=== PATIENT | male | born 2000 | race African-American/Black ===

== ENCOUNTER 2021-07-25 16:10 | Observation (INO) | payer OTHER, SELFPAY ==
--- NOTE | ~2021-07-25 | XR_ITS ---
EXAMINATION: XR chest 2V 07/25/2021 16:48 INDICATION: Chest pain PROCEDURE: 2 view chest COMPARISON: No prior studies for comparison. FINDINGS: The lungs are clear. The cardiomediastinal silhouette is within normal limits. There are no pleural effusions. Small left apical pneumothorax. IMPRESSION: 1: Small left apical pneumothorax. Dr. Cassius Padron discussed with Dr. 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 . Reviewed, dictated and finalized at location B. MBLER TRUCK TRAILER
--- NOTE | ~2021-07-25 | XR_ITS ---
EXAMINATION: XR chest 2V EXAM DATE: 07/26/2021 08:03 INDICATION: Left sided chest pain yesterday, pneumothorax. TECHNIQUE: Frontal and lateral projections of the chest obtained and reviewed. Comparison is made to prior examination from 07/25/2021. FINDINGS: There is small left-sided pneumothorax, about 8 mm of distance between the pleural reflecti ons at the lung apex, measuring about 4 mm on prior study. No acute airspace disease or pleural effus ion. Cardiomediastinal silhouette is normal. There are no osseous abnormalities identified. IMPRESSION: Small left pneumothorax, interval increase in size. Reviewed, dictated and finalized at location A. 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
--- NOTE | ~2021-07-25 | XR_ITS ---
EXAMINATION: XR chest 1V portable DATE: 07/27/2021 08:16 INDICATION: Spontaneous left pneumothorax. TECHNIQUE: A single frontal view of the chest was obtained. COMPARISON: Chest 2 views 07/26/2021 FINDINGS: There is a small left pneumothorax. No pneumonia or pleural effusion. The heart size is nor mal. IMPRESSION: 1. Stable small left pneumothorax. Reviewed, dictated and finalized at location A. KNITTER
[2021-07-25 16:15] VITALS: BP 115/33; PULSE 60; RESP 18; TEMP 36.3; O2SAT 100
--- NOTE | 2021-07-25 16:15 | ECG_ITS ---
Measurements Intervals [place] Rate: 56 P: 70 OK: 163 QRS: 55 QRSD: 113 T: 61 QT: 393 QTc: 381 Interpretive Statements SINUS BRADYCARDIA INCOMPLETE RIGHT BUNDLE BRANCH BLOCK BASELINE WANDER- II, III BORDERLINE ECG Electronically Signed On 07-25-2021 20:22:57 URBAN GARDENING SPECIALIST by Cristopher Tolbert D.O.
[2021-07-25 16:56] LABS: Basophils Percent Auto 0.9 % (0.2-1.2); Eosinophils Percent Auto 0.4 % (0-4.4); Hematocrit 42.4 % (42.0-52.0); Hemoglobin 14.5 g/dL (14.0-18.0); Immature Granulocyte Absolute 0.01 K/mm3 (0.00-0.031); Immature Granulocyte Percent A 0.2 % (0-0.5); Immature Platelet Fraction Pct 19.3 % (0.9-11.2); Lymphocytes Absolute Auto 1.75 K/mm3 (0.9-3.2); Lymphocytes Percent Auto 38.5 % (18.3-44.2); Mean Corpuscular HGB Conc 34.2 g/dl (32-36); Mean Corpuscular Hemoglobin 32.7 pg (26-34); Mean Corpuscular Volume 95.5 fl (80-100); Mean Platelet Volume 12.9 fl (7.4-10.4); Monocytes Absolute Auto 0.7 K/mm3 (0.1-0.6); Monocytes Percent Auto 15.6 % (2.6-8.5); Neutrophils Percent Auto 44.4 % (45.5-73.1); Platelet Count Result 126 k/mm3 (150-375); Red Blood Count 4.44 M/mm3 (4.6-6.20); Red Cell Distribution Width 12.3 % (11.5-14.5); White Blood Count 4.5 K/mm3 (4.5-10.0)
[2021-07-25 17:05] LABS: Alanine Aminotransferase 20 U/L (4-50); Alkaline Phosphatase 89 U/L (38-126); Anion Gap 9 mmol/L (8-16); Aspartate Amino Transferase 26 U/L (17-59); Bilirubin,Total 0.5 mg/dL (0.2-1.3); Blood Urea Nitrogen 15 mg/dL (9-20); Calcium 9.4 mg/dL (8.4-10.2); Carbon Dioxide 26 mmol/L (22-30); Chloride 106 mmol/L (98-107); Estimated CRCL calculation 99 ml/min; Estimated Glomerular Filt Rate > 60; Glucose 93 mg/dL (65-110); Lipase 50 U/L (23-300); Potassium 3.7 mmol/L (3.4-5.0); Sodium 141 mmol/L (137-145)
[2021-07-25 17:06] LABS: INR 1.1; Partial Thromboplastin Time 30.3 SECONDS (22.3-36.8); Prothrombin Time 14.2 Seconds (11.1-14.7)
[2021-07-25 17:16] LABS: Troponin I < 0.012 ng/mL (0.000-0.034)
[2021-07-25 17:30] VITALS: BP 125/97; PULSE 56; PULSE 65; RESP 14; O2SAT 100; O2SAT 96
--- NOTE | 2021-07-25 17:34 | ED.CHESTPAIN ---
HPI - Chest Pain General Chief Complaint: Chest Pain Stated Complaint: ruq pain to left chest Time Seen by Provider: 07/25/21 17:23 Source: patient Mode of arrival: ambulatory Limitations: no limitations History of Present Illness HPI narrative: 21-year-old otherwise healthy male here with complaints of left upper chest pain for the last half hour. Patient states that he was about to go to work started having pain had mild shortness of breath initially but however it subsided. He also mentions that he had pain in the right side of his chest while he was at work. He denies any trauma . No history of cough. No previous history of spontaneous pneumothorax MD complaint: chest pain Onset (ago): minute(s) (30) Onset: during rest Pain location: left chest Pain radiation: neck Quality: aching Relieving factors: nothing Exacerbating factors: nothing Risk Factors Coronary artery disease risk factors: none Thoracic aortic dissection risk factors: none Review of Systems Review of Systems: All systems reviewed & are unremarkable except as noted in HPI and below Constitutional: Constitutional: Reports no additional constitutional complaints Eyes: Eyes: Reports no additional eye complaints Cardiovascular: Cardiovascular: Reports as per HPI and Reports no additional cardiovascular complaints Respiratory: Respiratory: Reports as per HPI Gastrointestinal: Gastrointestinal: Reports no additional gastrointestinal complaints Musculoskeletal: Musculoskeletal: Reports no additional musculoskeletal complaints Integumentary/Breasts: Skin/Breast: Reports system reviewed and no additional complaints, except as docu Neurologic: Reports system reviewed and no additional complaints, except as documented Endocrine: Endocrine: Reports no additional endocrine complaints Exam Narrative: GENERAL: Well-appearing, thin and tall , and in no acute distress. HEAD: Normocephalic, atraumatic. EYES: PERRLA and EOMI NECK: Supple. CHEST: Clear to auscultation. No respiratory distress. HEART: Regular rate and rhythm. No murmur heard. Normal peripheral pulses. ABDOMEN: Soft, nontender, nondistended, normal active bowel sounds. EXTREMITIES: Normal range of motion. No edema. SKIN: Warm, dry, no rash. NEURO: No focal deficits. Alert and oriented x3. PSYCH: Normal mood and affect. Course Course Emergency Course: informed pt about lab work and CXR finding , discussed with Dr. Huertas will consult the pt Vital Signs Vital signs: Vital Signs Temperature 36.3 C L 07/25/21 16:15 Pulse Rate 60 07/25/21 16:15 Respiratory Rate 18 07/25/21 16:15 Blood Pressure 115/33 L 07/25/21 16:15 Pulse Oximetry 100 07/25/21 16:15 Temperature 36.3 C L 07/25/21 16:15 Pulse Rate 65 07/25/21 19:12 Respiratory Rate 15 07/25/21 19:12 Blood Pressure 109/58 L 07/25/21 19:12 Pulse Oximetry 99 07/25/21 19:12 MDM - Chest Pain Lab Data Result diagrams: 07/25/21 16:29 07/25/21 16:29 Labs: Lab Results 07/25/21 07/25/21 07/25/21 Range/Units 16:29 16:29 16:29 WBC 4.5 (4.5-10.0) K/mm3 RBC 4.44 L (4.6-6.20) M/mm3 Hgb 14.5 (14.0-18.0) g/dL Hct 42.4 (42.0-52.0) % MCV 95.5 (80-100) fl MCH 32.7 (26-34) pg MCHC 34.2 (32-36) g/dl RDW 12.3 (11.5-14.5) % Plt Count 126 L (150-375) k/mm3 MPV 12.9 H (7.4-10.4) fl Immature Gran % (Auto) 0.2 (0-0.5) % Neut % (Auto) 44.4 L (45.5-73.1) % Lymph % (Auto) 38.5 (18.3-44.2) % [place] % (Auto) 15.6 H (2.6-8.5) % Eos % (Auto) 0.4 (0-4.4) % Baso % (Auto) 0.9 (0.2-1.2) % Lymph # (Auto) 1.75 (0.9-3.2) K/mm3 [place] # (Auto) 0.7 H (0.1-0.6) K/mm3 Eos # (Auto) 0.0 (0-0.3) K/mm3 Baso # (Auto) 0.0 (0.0-0.1) K/mm3 Abs Immat Gran (auto) 0.01 (0.00-0.031) K/mm3 Absolute Neuts (auto) 2.0 (1.3-6.7) K/mm3 Absolute Nucleated RBC 0.0 (0.0-0.012) K/mm3 Nucleated RBC % 0.0 (0.0-0.2) % %
[2021-07-25 19:12] VITALS: BP 109/58; PULSE 65; RESP 15; O2SAT 99
--- NOTE | 2021-07-25 19:45 | PM.IMHP ---
H&P: HPI History of Present Illness Date/Time: 07/25/21 19:45 Chief Complaint: Chest pain. Narrative: This is a pleasant, previously healthy 21-year-old male who presented to the emergency department for evaluation of chest pain. 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 He was also feeling short of breath and notes his pain is worse with deep inspiration. It was severe enough that he thought he was having a heart attack and came in for evaluation. His EKG showed sinus bradycardia with an incomplete right bundle branch block and a chest x-ray showed a small left apical pneumothorax. He has no history of pneumothorax but he has had similar symptoms on several occasions since his mid teens though he was never evaluated for such. His father had as a history of pneumothoraces however it sounds as though he had severe asthma and in fact from that. At the time of my evaluation he is more comfortable but again he does still have pleuritic chest pain. He has not currently feeling short of breath. He denies exertional chest pain, palpitations, syncope, near syncope, diaphoresis, nausea, and vomiting. Review of Systems Review of Systems: Twelve systems were reviewed and are negative except for as per HPI. [facility] Past Medical History Medical History (Updated 07/25/21 @ 20:33 by Katia Doshi PA-C) Healthy male adult Surgical History Surgical History (Updated 07/25/21 @ 20:29 by Katia Doshi PA-C) No history of previous surgery Family History Family History (Updated 07/25/21 @ 20:30 by Katia Doshi PA-C) Father Asthma Anoxic brain injury Mother Ovarian cancer Sibling Asthma Social History Social History (Updated 07/25/21 @ 20:30 by Katia Doshi PA-C) Social History: The patient lives in [place] with his mother. 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 No tobacco use. Rare alcohol use in moderation. Smokes marijuana on occasion. He designates his mother, Kiana Fried, as his surrogate decision maker and he wishes to be a full code. Meds Vital Signs Vital Signs - 24 hr 07/25/21 16:15 07/25/21 17:30 07/25/21 19:12 Temperature 97.4 F L Pulse Rate 60 56 L 65 Respiratory Rate 18 14 15 Blood Pressure 115/33 L 125/97 H 109/58 L Pulse Oximetry 100 100 99 Exam Narrative: General: Tall, thin male sitting up in bed. Weight: 61.2 kg. BMI: 16.9. HEENT: PERRL, EOMI. Sclerae anicteric. Oral mucosa moist. Oropharynx clear. Neck: Supple. No JVD. Respiratory: Respirations are nonlabored. Lungs are clear to auscultation. Cardiovascular: Regular rate and rhythm with S1-S2. No murmur, rub, or gallop. Gastrointestinal: Abdomen is soft, flat, nontender, and nondistended with positive bowel sounds. Skin: Warm and dry. No rash or lesions on limited exam. Extremities: No cyanosis, clubbing, or edema. Radial and pedal pulses intact. Neurological: Alert. Cranial nerves 2-12 are grossly intact. No gross focal deficits to casual conversation. Psychiatric: Pleasant and cooperative with normal mood and affect. Judgment and insight intact. H&P: Results Labs Labs: Short CBC 07/25/21 Range/Units 16:29 WBC 4.5 (4.5-10.0) K/mm3 Hgb 14.5 (14.0-18.0) g/dL Hct 42.4 (42.0-52.0) % Plt Count 126 L (150-375) k/mm3 BMP 07/25/21 16:29 Sodium 141 Potassium 3.7 Chloride 106 Carbon Dioxide 26 BUN 15 Creatinine 0.90 Glucose 93 Calcium 9.4 Cardiac Enzymes 07/25/21 Range/Units 16:29 Troponin I < 0.012 (0.000-0.034) ng/mL Liver Function 07/25/21 Range/Units 16:29 Total Bilirubin 0.5 (0.2-1.3) mg/dL AST 26 (17-59) U/L ALT 20 (4-50) U/L Alkaline Phosphatase 89 (38-126) U/L Albumin 5.0 (3.5-5.1) g/dL Imaging Chest X-Ray 07/25
[2021-07-25 20:19] LABS: SARS-CoV-2 RNA PCR Negative
[2021-07-25 20:27] VITALS: BP 121/66; PULSE 51; RESP 18; O2SAT 99
[2021-07-25 23:07] VITALS: BP 115/75; PULSE 44; RESP 18; O2SAT 99
--- NOTE | 2021-07-25 23:35 | ADMGEN ---
This patient, Caden Clarke, was admitted to Medical Room 254-01. Patient/family oriented to hospital policies and general routines including ID bracelet, bed and alarms, visiting hours, pain management, procedures, bathroom and other care routines, personal items, smoking policy, room service/diet, and visiting hours. Information on how to activate the Rapid Response Team has been discussed. Patient/Family are encouraged to report perceived risks to care and to ask questions if they do not understand what they are told or what they should do.
[2021-07-26] VITALS (9 sets, daily range): BP systolic 105–115; BP diastolic 48–57; PULSE 47–61; RESP 18–21; TEMP 36.2–36.8; O2SAT 97–100; BMI 16.5
[2021-07-26] MEDS: HYDROcodone/acetaminophen (*CRX) 5-325 MG TABLET 1 TAB PO ×2 (06:13→17:03)
[2021-07-26 06:41] LABS: Basophils Percent Auto 0.8 % (0.2-1.2); Eosinophils Absolute Auto 0.1 K/mm3 (0-0.3); Eosinophils Percent Auto 1.5 % (0-4.4); Hematocrit 40.9 % (42.0-52.0); Immature Granulocyte Absolute 0.02 K/mm3 (0.00-0.031); Immature Granulocyte Percent A 0.4 % (0-0.5); Lymphocytes Percent Auto 42.6 % (18.3-44.2); Mean Corpuscular HGB Conc 34.2 g/dl (32-36); Mean Corpuscular Hemoglobin 32.6 pg (26-34); Mean Corpuscular Volume 95.1 fl (80-100); Mean Platelet Volume 13.7 fl (7.4-10.4); Monocytes Absolute Auto 0.9 K/mm3 (0.1-0.6); Monocytes Percent Auto 17.2 % (2.6-8.5); Neutrophils Absolute Auto 1.9 K/mm3 (1.3-6.7); Neutrophils Percent Auto 37.5 % (45.5-73.1); Platelet Count Result 113 k/mm3 (150-375); Red Cell Distribution Width 12.2 % (11.5-14.5); White Blood Count 5.2 K/mm3 (4.5-10.0)
--- NOTE | 2021-07-26 09:39 | PM.IMPN ---
Progress Note: A&P Assessment and Plan (1) Pneumothorax on left: Code(s): J93.9 - Pneumothorax, unspecified Status: Acute Assessment and Plan: Chest x-ray was repeated today shows worsening pneumothorax small in size Surgery evaluation pending (2) Pleuritic chest pain: Code(s): R07.81 - Pleurodynia Status: Acute Assessment and Plan: Improved with pain medication secondary to pneumothorax Subjective Date/time seen: 07/26/21 09:39 Interval history: Patient presented to the hospital with pleuritic chest pain was found to have small pneumothorax chest x-ray repeated today shows increase in the pneumothorax Patient feels weak denies chest pain Patient denies fever headache shortness of breath I am seeing the patient for chest pain Exam Narrative: Alert Chest no wheeze crackles Abdomen nontender nondistended CVS S1 + S2 Lower extremity edema Objective Data Vital Signs Vital Signs: Vital Signs - 24 hr 07/25/21 16:15 07/25/21 17:30 07/25/21 19:12 Temperature 97.4 F L Pulse Rate 60 56 L 65 Respiratory Rate 18 14 15 Blood Pressure 115/33 L 125/97 H 109/58 L Pulse Oximetry 100 100 99 07/25/21 20:27 07/25/21 23:07 07/26/21 00:30 Temperature 97.3 F L Pulse Rate 51 L 44 L 61 Respiratory Rate 18 18 21 H Blood Pressure 121/66 115/75 110/48 L Pulse Oximetry 99 99 100 07/26/21 04:00 07/26/21 08:00 Temperature 97.8 F 97.6 F Pulse Rate 48 L 60 Respiratory Rate 21 H 20 Blood Pressure 105/56 L 110/57 L Pulse Oximetry 100 100 Intake/Output Intake/Output: Intake & Output 07/23/21 07/24/21 07/25/21 07/26/21 23:59 23:59 23:59 23:59 Intake Total 940 Balance 940 Meds/Results Medications: Active Medications Generic Name Dose Route Start Last Admin Trade Name Freq PRN Reason Stop Dose Admin Acetaminophen 650 mg 07/25/21 19:17 Acetaminophen 325 Mg Tablet PO Q4H PRN Mild Pain (1-3) or Fever Hydrocodone Bitart/Acetaminophen 1 tab 07/25/21 20:39 07/26/21 06:13 Hydrocodone/Acetaminophen (*Crx) 5-325 Mg Tablet PO 1 tab Q6H PRN Administration Pain Rated 4-6 Morphine Sulfate 4 mg 07/25/21 19:17 Morphine Sulfate (*Crx) 4 Mg/Ml Inj IV PUSH Q2H PRN Pain Rated 7-10 Ondansetron HCl 4 mg 07/25/21 19:17 Ondansetron Inj 4 Mg/2 Ml Vial IV PUSH Q4H PRN Nausea Radiology Results: ITS Impressions Chest X-Ray 07/26/21 08:07 IMPRESSION: Small left pneumothorax, interval increase in size. Labs Labs: Laboratory Results - last 24 hr 07/25/21 07/25/21 07/25/21 16:29 16:29 16:29 WBC 4.5 RBC 4.44 L Hgb 14.5 Hct 42.4 MCV 95.5 MCH 32.7 MCHC 34.2 RDW 12.3 Plt Count 126 L MPV 12.9 H Immature Gran % (Auto) 0.2 Neut % (Auto) 44.4 L Lymph % (Auto) 38.5 [place] % (Auto) 15.6 H Eos % (Auto) 0.4 Baso % (Auto) 0.9 Lymph # (Auto) 1.75 [place] # (Auto) 0.7 H Eos # (Auto) 0.0 Baso # (Auto) 0.0 Abs Immat Gran (auto) 0.01 Absolute Neuts (auto) 2.0 Absolute Nucleated RBC 0.0 Nucleated RBC % 0.0 % Immature Plt Fraction 19.3 H PT 14.2 INR 1.1 APTT 30.3 Sodium 141 Potassium 3.7 Chloride 106 Carbon Dioxide 26 Anion Gap 9 BUN 15 Creatinine 0.90 Estim Creat Clear Calc 99 Estimated GFR > 60 Glucose 93 Calcium 9.4 Total Bilirubin 0.5 AST 26 ALT 20 Alkaline Phosphatase 89 Troponin I < 0.012 Total Protein 8.0 Albumin 5.0 Lipase 50 SARS-CoV-2 RNA (RT-PCR) 07/25/21 07/26/21 19:37 06:09 WBC 5.2 RBC 4.30 L Hgb 14.0 Hct 40.9 L MCV 95.1 MCH 32.6 MCHC 34.2 RDW 12.2 Plt Count 113 L MPV 13.7 H Immature Gran % (Auto) 0.4 Neut % (Auto) 37.5 L Lymph % (Auto) 42.6 [place] % (Auto) 17.2 H Eos % (Auto) 1.5 Baso % (Auto) 0.8 Lymph # (Auto) 2.20 [place] # (Auto) 0.9 H Eos # (Auto) 0.1 Baso # (Auto) 0.0 Abs Immat Gran
--- NOTE | 2021-07-26 09:52 | PM.CNGS ---
Assessment and Plan Assessment and plan (1) Pneumothorax on left: Code(s): J93.9 - Pneumothorax, unspecified <Kristen SherKrissy SalazarCHARU castro - Last Filed: 07/26/21 10:02> Status: Acute <Kristen SalazarCHARU castro - Last Filed: 07/26/21 10:02> (2) Marijuana smoker: Code(s): F12.90 - Cannabis use, unspecified, uncomplicated <Kristen SherKrissy CHARU Roblero - Last Filed: 07/26/21 10:02> Status: Acute <Kristen Marcello SalazarCHARU castro - Last Filed: 07/26/21 10:02> Assessment and Plan: Strongly encouraged cessation. Patient verbalizes a plan for cessation after discharge. <CHARU Hatfield - Last Filed: 07/26/21 10:02> Additional Plan I have discussed the patient's case and plan of care with Dr. Huertas. Thank you for allowing us to see the patient in consultation and we will continue to follow along with you. <CHARU Hatfield - Last Filed: 07/26/21 10:02> History of Present Illness Consult details Consult date: 07/26/21 <CHARU Hatfield - Last Filed: 07/26/21 10:02> 07/26/21 <Myron Huertas MD - Last Filed: 07/26/21 12:33> Reason for consult: other (Small apical left pneumothorax) <CHARU Hatfield - Last Filed: 07/26/21 10:02> Requesting physician: Antwan Schulte MD <CHARU Hatfield - Last Filed: 07/26/21 10:02> Narrative: This is a 21 yo male who presented to the ER with complaints of left-sided chest pain and shortness of breath. He reports that he has been a heavy marijuana smoker daily for about 5 years and stopped smoking about 6 days ago just by choice. Yesterday, he noticed a sudden onset of left-sided chest pain. When his pain was more severe, he reports having nausea that would resolve has his pain improved. His chest pain was worse with inspiration. He had associated shortness of breath at rest and with activity. Due to his persistent symptoms, he presented to the ER for evaluation. Chest x-ray showed a small apical left pneumothorax. He was tested for COVID-19 in the ER and was negative. EKG showed sinus bradycardia. Troponin negative. Our service was consulted by the ED physician for the small left pneumothorax. The patient was admitted for observation overnight. The patient is seen and examined this morning. He reports feeling better with no shortness of breath at rest. He reports his left-sided chest pain has resolved, although he is now having some slight right-sided chest pain that is mild and started overnight. He denies any recent trauma. He denies a history of pneumothorax in the past. No other complaints or symptoms at this time. <CHARU Hatfield - Last Filed: 07/26/21 10:02> Review of Systems Review of Systems: All systems reviewed & are unremarkable except as noted in HPI and below <CHARU Hatfield - Last Filed: 07/26/21 10:02> Constitutional: Constitutional: Reports as per HPI, Denies chills and Denies fever(s) <CHARU Hatfield - Last Filed: 07/26/21 10:02> Eyes: Eyes: Reports no additional eye complaints <CHARU Hatfield - Last Filed: 07/26/21 10:02> ENT: Reports system reviewed and no additional complaints, except as documented <CHARU Hatfield - Last Filed: 07/26/21 10:02> Cardiovascular: Cardiovascular: Reports no additional cardiovascular complaints, Reports chest pain (left-sided CP with inspiration), Denies chest pain with activity, Denies rapid heart rate and Denies leg edema <CHARU Hatfield - Last Filed: 07/26/21 10:02> Respiratory: Respiratory: Reports no additional respiratory complaints, Denies cough, Reports dyspnea and Reports dyspnea on exertion <CHARU Hatfield - Last Filed: 07/26/21 10:02> Gastrointestinal: Gastrointestinal: Reports as per HPI, Reports no additional gastrointestinal complaints, Denies abdominal pain, Denies bloating, Denies constipation, Denies diarrhea, Reports nausea (when his pain was more severe at home) and Denies vomiting <Kristen B
--- NOTE | 2021-07-26 09:55 | PCDIET ---
Dietitian Screen for BMI: 16.5. underweight. Diet order: Regular. Oral Intake for breakfast 80%. Patient states to drinking Ensure at home. MD orders for Ensure Enlive providing an additional 350 kcals and 20 gms protein. Weight per patient has been stable. No further nutritional interventions.
--- NOTE | 2021-07-26 12:38 | PM.CNGS ---
Assessment and Plan Assessment and plan (1) Pneumothorax on left: Code(s): J93.9 - Pneumothorax, unspecified Status: Acute Assessment and Plan: Slightly larger by chest x-ray today but symptoms are better. Still only an apical pneumothorax with 8 mm separation. Will continue to observe in the hospital and repeat chest x-ray again tomorrow. If continues to increase, may well need a chest tube placed. Hopefully will stabilize and patient can be discharged. (2) Marijuana smoker: Code(s): F12.90 - Cannabis use, unspecified, uncomplicated Status: Chronic Assessment and Plan: Explained that if he continues to smoke cannabis or cigarettes he is very likely to get a recurrent pneumothorax and eventually may require surgery not just a chest tube. Strongly advised to stop smoking entirely. This includes vaping and E cigarettes. History of Present Illness Consult details Consult date: 07/26/21 Reason for consult: other (Spontaneous left pneumothorax) Requesting physician: Antwan Schulte MD Narrative: Patient is a 21-year-old man who noticed some left-sided chest pain and came to the emergency room. Chest x-ray showed a tiny left apical pneumothorax. He was not really short of breath but was having some left-sided chest pain. He smokes cannabis and is a heavy smoker of cannabis. He was admitted for observation. Another chest x-ray was done this morning which looks a little bit bigger but still very tiny and apical. His left-sided pain has gone although he had now notes some right-sided chest discomfort. Overall he feels better than yesterday. He has no shortness of breath. He seen in consultation regarding his spontaneous left pneumothorax. Chest x-ray today and yesterday did not show a right-sided pneumothorax. Review of Systems Review of Systems: All systems reviewed & are unremarkable except as noted in HPI and below Constitutional: Constitutional: Denies chills and Denies fever(s) Cardiovascular: Cardiovascular: Reports as per HPI, Reports chest pain, Denies diaphoresis, Denies dyspnea and Denies paroxysmal nocturnal dyspnea Respiratory: Respiratory: Reports as per HPI, Denies chest congestion, Denies cough, Reports pain on inspiration and Denies dyspnea Integumentary/Breasts: Skin/Breast: Denies lesions and Denies rash PMFSH Past Medical History Medical History Healthy male adult Surgical History Surgical History No history of previous surgery Family History Family History Father Asthma Anoxic brain injury Mother Ovarian cancer Sibling Asthma Social History Social History Social History: The patient lives in [place] with his mother. 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 No tobacco use. Rare alcohol use in moderation. Heavy marijuana smoker for about 5 years, he smoked daily up until about 6 days ago. He designates his mother, Kiana Fried, as his surrogate decision maker and he wishes to be a full code. Smoking status: Current some day smoker Additional smoking assessment comments: smokes marijuana Alcohol intake: current Drinks per week: 1 Substance use: current Substance use type: marijuana Last use: 6 days ago Living arrangements: with family Spiritual care concerns: No Meds Home Medications and Allergies Home Medications Medication Instructions Recorded Confirmed Type No Home Medications 07/25/21 07/25/21 History Allergies Allergy/AdvReac Type Severity Reaction Status Date / Time No Known Allergies Allergy Verified 07/25/21 22:06 Vital Signs Vital Signs - 24 hr 07/25/21 16:15 07/25/21 17:30 07/25/21 19:12 Temperature 36.3 C L Pulse Rate 60 56 L 65 Respiratory Rate 18 14 15 Blood Pressure 115/33 L
[2021-07-27] VITALS: BP 110/50; PULSE 51; RESP 18; TEMP 36.6; O2SAT 100
[2021-07-27 04:00] VITALS: BP 113/61; PULSE 50; RESP 18; TEMP 36.2; O2SAT 98
[2021-07-27 05:50] VITALS: BP 113/61; PULSE 50; RESP 18; TEMP 36.2; O2SAT 98
[2021-07-27 08:00] VITALS: BP 135/52; PULSE 54; RESP 14; TEMP 36.5; O2SAT 100
--- NOTE | 2021-07-27 09:58 | P.DS_ITS ---
DS: Admitting Diagnosis Discharge Date 07/27/21 Admitting Diagnosis Pneumothorax DS: Discharge Diagnosis Discharge Diagnosis (1) Pneumothorax on left: Code(s): J93.9 - Pneumothorax, unspecified Status: Acute Assessment and Plan: Repeat chest x-ray show stable pneumothorax Discharge instructions regarding activity was given Follow-up with surgery as outpatient (2) Pleuritic chest pain: Code(s): R07.81 - Pleurodynia Status: Deleted Assessment and Plan: Improved pain control DS: Summary Hospital Course Hospital Course: Patient presented to the hospital with chest pain on the left side chest x-ray showed pneumothorax surgery was consulted pneumothorax was stabilized follow-up with surgery as outpatient repeat chest x-ray as outpatient patient will be discharged on pain control with restriction in activity avoid straining avoid any activity that can increase intrathoracic pressure. Follow- up with PCP as outpatient. Time Spent with Patient Time attestation: Total time spent providing and/or coordinating discharge services: Exam Narrative: Alert Chest no wheeze crackles Abdomen nontender nondistended CVS S1 + S2 Lower extremity edema Discharge Plan Discharge Attending physician on discharge: Gal Schroeder M.A. Consulting providers: Myron Huertas Discharging Clinician: Gal Schroeder M.A. Patient Disposition: Home, Self-Care Activity: other - see discharge instructions Diet: regular Discharge Instructions: No flying in an airplane no driving for 1 month Avoid any activities that increase the pressure inside your chest or make you strain for 1 month Activities like but not limited to straining lifting weight more than 5 lb Avoid any situation where you need to hold your breath to lift anything or moving any object for 1 month. Patient Instructions: Antibiotic Form Stand Alone Forms: General Discharge Information Follow-up/Referrals: Myron Huertas MD [Physician] - PHYSICIAN,DATABASE MANAGEMENT SPECIALIST [Primary Care Provider] - Discharge Medications: New ibuprofen 400 mg tablet 400 mg PO Q6H PRN (Reason: pain) Qty: 20 RF: 0 No Action No Home Medications RF: 0 Date of admission: 07/25/21 19:17 Primary Care Provider: PHYSICIAN,DATABASE MANAGEMENT SPECIALIST Admitting Provider: Aydee Rivera Attending physician on admission: Aydee Rivera Condition: Stable Quality VTE Prophylaxis VTE prophylaxis: mechanical ordered
== END 2021-07-27 11:52 | disposition home or self-care (01) ==
LOC: ANHED 18:29 → ANH2MED 21:45
PROVIDERS: Physician Assistant; Admitting Provider Internal Medicine; Emergency Provider Family Medicine; Visit Provider Internal Medicine
DX: J93.9 Pneumothorax, unspecified (principal); R07.81 Pleurodynia; F12.90 Cannabis use, unspecified, uncomplicated; Z20.822 Contact with and (suspected) exposure to COVID-19
CPT/HCPCS: 36415; 71045; 71046; 80053; 83690; 84484; 85025; 85055; 85610; 85730; 93005; 99285; A9270; C9803; G0378; U0003; U0005

== ENCOUNTER 2021-08-30 14:10 | Outpatient (CLI) | payer OTHER, SELFPAY ==
--- NOTE | ~2021-08-30 | XR_ITS ---
XR chest 2V DATE: 08/30/2021 14:35 INDICATION: Pneumothorax TECHNIQUE: PA and lateral views COMPARISON: 07/27/2021 portable AP chest FINDINGS: There is resolution of the mild left pneumothorax noted on 07/27/2021. Small No pulmonary infiltrate or consolidation, pleural effusion or pulmonary vascular congestion or pneumo thorax. Normal heart size. IMPRESSION: No active cardiopulmonary disease; resolution of small left pneumothorax since 07/27/2021 Reviewed, dictated and finalized at location A. [employer] IMPRESSION: No active cardiopulmonary disease; resolution of small left pneumot horax since 07/27/2021
== END 2021-08-30 14:11 | disposition home or self-care (01) ==
LOC: ANHIMG 14:15
PROVIDERS: PCP Family Medicine; Visit Provider Family Medicine
DX: J93.9 Pneumothorax, unspecified (principal)
CPT/HCPCS: 71046

== ENCOUNTER 2021-12-16 08:21 | Emergency (ER) | payer OTHER, SELFPAY ==
[2021-12-16 08:30] VITALS: BP 99/56; PULSE 69; RESP 16; TEMP 37.3; O2SAT 99
--- NOTE | 2021-12-16 08:49 | ED.HA ---
HPI - Headache General Chief Complaint: Headache Stated Complaint: wilcox Time Seen by Provider: 12/16/21 08:49 Source: patient Mode of arrival: ambulatory Limitations: no limitations History of Present Illness HPI Narrative: 21-year-old male presented for complaints of a headache since yesterday. He states he has been working 14-hour shifts and today and states due to the headache he feels he needs to get some rest. He denies nausea, vomiting, dizziness, or vision changes. Related Data Home Medications Medication Instructions Recorded Confirmed No Home Medications 08/30/21 08/30/21 Allergies Allergy/AdvReac Type Severity Reaction Status Date / Time No Known Allergies Allergy Verified 08/30/21 13:34 Review of Systems Review of Systems: CONSTITUTIONAL: Denies body aches, fever, chills, or sweats. EYES: Denies visual changes, redness, or discharge. ENT: Denies rhinorrhea, congestion, sore throat, or otalgia. CARDIOVASCULAR: Denies chest pain, palpitations, or edema. RESPIRATORY: Denies cough or dyspnea. MUSCULOSKELETAL: Denies back pain, joint pain, or myalgia. NEUROLOGIC: Denies numbness, tingling, or weakness. All systems reviewed & are unremarkable except as noted in HPI and below PMFSH Past Medical History Medical History Anxiety Surgical History Surgical History No history of previous surgery Family History Family History Father Asthma Anoxic brain injury Mother Ovarian cancer Sibling Asthma Social History Social History Social History: The patient lives in [place] with his mother. 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 No tobacco use. Rare alcohol use in moderation. Heavy marijuana smoker for about 5 years, he smoked daily up until about 6 days ago. He designates his mother, Kiana Fried, as his surrogate decision maker and he wishes to be a full code. Smoking status: Current every day smoker Additional smoking assessment comments: smokes marijuana Alcohol intake: current Drinks per week: 1 Substance use: current Substance use type: marijuana Last use: 6 days ago Spiritual care concerns: No Comments At time of signature, I have reviewed and agree with nursing past medical, surgical, social and family history unless otherwise noted. Please see nursing chart for further information. There is no relevant family history pertinent to the presenting complaint Exam Narrative: GENERAL: Well-appearing HEAD: Normocephalic, atraumatic. EYES: EOMI. No redness or drainage. Conjunctivae normal. ENT: Mucous membranes pink and moist. No rhinorrhea. TMs normal bilaterally. CHEST: Clear to auscultation. HEART: Regular rate and rhythm. No murmur appreciated. Normal peripheral pulses. SKIN: Warm, dry, no rash. Capillary refill normal. Normal skin turgor. NEURO: No focal deficits. Alert and oriented x3. Gait steady. PSYCH: Normal affect. Course Course Emergency Course: Patient is aware of diagnosis, understands and agrees to treatment plan. Anticipatory guidance given. Patient agrees to follow-up as directed and is aware of reasons to seek care at the emergency department. Portions of this record may have been created with voice recognition software Level of Care: Express Care Visit Vital Signs Vital signs: Vital Signs Temperature 99.2 F 12/16/21 08:30 Pulse Rate 69 12/16/21 08:30 Respiratory Rate 16 12/16/21 08:30 Blood Pressure 99/56 L 12/16/21 08:30 Pulse Oximetry 99 12/16/21 08:30 Oxygen Delivery Room Air 12/16/21 08:30 Temperature 99.2 F 12/16/21 08:30 Pulse Rate 69 12/16/21 08:30 Respiratory Rate 16 12/16/21 08:30 Blood Pressure 99/56 L 12/16/21 08:30 Pulse Oximetry 99 12/16/21 08:30 Oxygen Del
== END 2021-12-16 08:55 | disposition home or self-care (01) ==
PROVIDERS: Emergency Provider Nurse Practitioner Family
DX: R51.9 Headache, unspecified (principal)
CPT/HCPCS: 99213; G0463

== ENCOUNTER 2022-01-21 08:20 | Emergency (ER) | payer OTHER, SELFPAY ==
--- NOTE | ~2022-01-21 | XR_ITS ---
EXAMINATION: XR chest 2V DATE: 01/21/2022 08:50 INDICATION: Left-sided chest pain TECHNIQUE: AP and lateral views of the chest are obtained. COMPARISON: 08/30/2021 FINDINGS: The lungs are free of acute opacities. No pleural effusion or pneumothorax. The cardiomedia stinal silhouette is normal. The visualized bones and soft tissues are unremarkable. IMPRESSION: 1. No acute cardiopulmonary abnormality. Reviewed, dictated and finalized at location B.
--- NOTE | 2022-01-21 08:27 | ED.CHESTPAIN ---
HPI - Chest Pain General Chief Complaint: Chest Pain Stated Complaint: Chest Pain Time Seen by Provider: 01/21/22 08:29 Source: patient, RN notes reviewed and old records reviewed Mode of arrival: ambulatory Limitations: no limitations History of Present Illness HPI narrative: 21-year-old male presents to the [facility] with complaints of sharp left-sided chest pain for 1 week. Patient has a history of a pneumothorax states does not feel the same. No treatment prior to arrival. Patient states that he has been under a lot of stress with his cousin being in a car accident. Body habitus very tall and thin. Recently admitted in June for a spontaneous pneumo Reports that he is around a lot of smokers, has cut back on smoking marijuana, last blunt 1 week ago when he states that his cousin was in a car accident. Denies any other drug use MD complaint: chest pain Pertinent past history: other (Spontaneous pneumo) Onset (ago): week(s) (1) Prior episodes: Yes Pain location: substernal and left chest Pain radiation: none Quality: aching, heaviness and sharp Relieving factors: nothing Exacerbating factors: exertion and stress Associated symptoms: dyspnea and other (Anxiety) Treatment prior to arrival: none Related Data Home Medications Medication Instructions Recorded Confirmed No Home Medications 08/30/21 01/21/22 Allergies Allergy/AdvReac Type Severity Reaction Status Date / Time No Known Allergies Allergy Verified 01/21/22 08:25 Review of Systems Review of Systems: All systems reviewed & are unremarkable except as noted in HPI and below Constitutional: Constitutional: Reports no additional constitutional complaints, Denies chills and Denies fever(s) Eyes: Eyes: Reports no additional eye complaints ENT: Reports system reviewed and no additional complaints, except as documented Cardiovascular: Cardiovascular: Reports as per HPI, Reports chest pain (Sternal to left-sided) and Reports dyspnea on exertion Respiratory: Respiratory: Reports as per HPI and Reports dyspnea Gastrointestinal: Gastrointestinal: Reports no additional gastrointestinal complaints Musculoskeletal: Musculoskeletal: Reports no additional musculoskeletal complaints Integumentary/Breasts: Skin/Breast: Reports system reviewed and no additional complaints, except as docu Neurologic: Reports system reviewed and no additional complaints, except as documented Psychiatric: Psychiatric: Reports no additional psychiatric complaints Allergic/Immunologic: Allergic/Immunologic: Reports no additional allergic/immunologic complaints PMFSH Past Medical History Medical History (Updated 07/25/22 @ 10:16 by Susana Tolentino APRN) Anxiety Spontaneous pneumothorax Surgical History Surgical History No history of previous surgery Family History Family History Father Asthma Anoxic brain injury Mother Ovarian cancer Sibling Asthma Social History Social History Social History: The patient lives in [place] with his mother. 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 No tobacco use. Rare alcohol use in moderation. Heavy marijuana smoker for about 5 years, he smoked daily up until about 6 days ago. He designates his mother, Kiana Fried, as his surrogate decision maker and he wishes to be a full code. Smoking status: Current every day smoker Additional smoking assessment comments: smokes marijuana Alcohol intake: current Drinks per week: 1 Substance use: current Substance use type: marijuana Last use: 6 days ago Spiritual care concerns: No Comments At the time of my signature, I reviewed and agree with the nursing past medical, surgical, social, and family history. There is no relevant family history pertinent to the patient complaint. Exam Const: General: healthy a
[2022-01-21 08:29] VITALS: BP 101/42; PULSE 66; RESP 18; TEMP 35.9; O2SAT 100
--- NOTE | 2022-01-21 08:39 | ECG_ITS ---
Measurements Intervals [place] Rate: 54 P: 40 NH: 186 QRS: 11 QRSD: 107 T: 37 QT: 396 QTc: 377 Interpretive Statements SINUS BRADYCARDIA WITH SINUS ARRHYTHMIA INCOMPLETE RIGHT BUNDLE BRANCH BLOCK DELAYED PRECORDIAL R/S TRANSITION BORDERLINE T WAVE ABNORMALITY- ANTERIOR LEADS BORDERLINE ECG Electronically Signed On 01-21-2022 9:56:25 CDT by Cristopher Tolbert D.O.
== END 2022-01-21 08:55 | disposition left against medical advice (07) ==
PROVIDERS: Emergency Provider Nurse Practitioner
DX: R94.31 Abnormal electrocardiogram [ECG] [EKG] (principal); R07.9 Chest pain, unspecified
CPT/HCPCS: 71046; 93005; 99213; G0463

== ENCOUNTER 2022-05-08 08:38 | Outpatient (CLI) | payer OTHER, SELFPAY ==
[2022-05-08 11:29] LABS: Kit Draw Collected
== END 2022-05-08 08:39 | disposition home or self-care (01) ==
LOC: ANHGOSHLAB 08:41
PROVIDERS: PCP Family Medicine; Visit Provider Nurse Practitioner
DX: Z11.3 Encounter for screening for infections with a predominantly sexual mode of transmission (principal); R63.4 Abnormal weight loss; E55.9 Vitamin D deficiency, unspecified; Z13.6 Encounter for screening for cardiovascular disorders; Z13.220 Encounter for screening for lipoid disorders
CPT/HCPCS: 36415

== ENCOUNTER 2022-08-21 13:35 | Outpatient (CLI) | payer OTHER, SELFPAY ==
[2022-08-21 19:33] LABS: HIV 1/2 Ab P24 Ag Result Negative (Negative)
[2022-08-22 13:09] LABS: Rapid Plasma Reagin Non-Reactive (NonReactive)
== END 2022-08-21 13:36 | disposition home or self-care (01) ==
LOC: ANHGOSHLAB 13:37
PROVIDERS: PCP Family Medicine; Visit Provider Nurse Practitioner
DX: Z11.3 Encounter for screening for infections with a predominantly sexual mode of transmission (principal)
CPT/HCPCS: 36415; 86592; 86703; G0432

== ENCOUNTER 2022-08-21 20:52 | Outpatient (NON) | payer OTHER, SELFPAY ==
[2022-08-26 03:49] LABS: Herpes Simplex Type 1 DNA PCR NOT DETECTED; Herpes Simplex Type 2 DNA PCR DETECTED
== END 2022-08-21 20:53 | disposition home or self-care (01) ==
LOC: ANHLAB 20:54
PROVIDERS: PCP Family Medicine; Visit Provider Nurse Practitioner
DX: Z11.3 Encounter for screening for infections with a predominantly sexual mode of transmission (principal)
CPT/HCPCS: 36415; 86592; 86703; 87491; 87529; 87591; G0432

== ENCOUNTER 2023-04-02 10:57 | Outpatient (CLI) | payer SELFPAY ==
[2023-04-02 19:38] LABS: Hepatitis B Surface Antigen Negative (Negative)
[2023-04-02 19:44] LABS: HAV RESULT Negative (Negative); Hepatitis B Core IgM Result Negative (Negative)
[2023-04-02 19:56] LABS: Hepatitis C Virus Antibody Negative (Negative)
[2023-04-02 20:36] LABS: Chlamydia trachomatis DETECTED (NOT DETECTE); Neisseria gonorrhoeae PCR NOT DETECTED (NOT DETECTE)
[2023-04-05 22:49] LABS: HIV 1 RNA PCR Not Detected Copies/mL; HIV 1 RNA PCR Not Detected Log cps/mL
== END 2023-04-02 10:58 | disposition home or self-care (01) ==
LOC: ANHGOSHLAB 11:05
PROVIDERS: PCP Family Medicine; Visit Provider Nurse Practitioner Family
DX: Z00.00 Encounter for general adult medical examination without abnormal findings (principal); R74.8 Abnormal levels of other serum enzymes
CPT/HCPCS: 36415; 80074; 87491; 87536; 87591